=== PATIENT | male | born 2000 | race African-American/Black ===

== ENCOUNTER 2021-04-15 13:24 | Emergency (ER) | payer MEDICAID, OTHER ==
[~2021-04-15] VITALS: Ht 175.3 cm; Wt 80.0 kg
[~2021-04-15 13:24] MED LIST: AMOX-424 MT; BO1 TP; IBUP-2029 PO
[2021-04-15 13:27] VITALS: BP 136/85
== END 2021-04-15 15:37 | disposition home or self-care (01) ==
LOC: ER 13:24
DX: Z48.02 Encounter for removal of sutures (principal)
CPT/HCPCS: 99281